=== PATIENT | male | born 1980 | race Caucasian/White ===

== ENCOUNTER → 2023-12-06 06:26 | Day surgery (SDC) | payer BC, SELFPAY | LOC: GI 06:26 | PROVIDERS: ATTENDING PHYSICIAN Internal Medicine Gastroenterology | DX: Z12.11 Encounter for screening for malignant neoplasm of colon (principal); Z80.0 Family history of malignant neoplasm of digestive organs; K64.8 Other hemorrhoids | CPT/HCPCS: G0105 ==

== ENCOUNTER 2025-02-06 18:07 | Emergency (ER) | payer BC, SELFPAY ==
[2025-02-06 18:18] VITALS: BP 119/73
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
[2025-02-06] MEDS: ADACEL 0.5 ML IM (19:28)
== END 2025-02-06 19:39 | disposition home or self-care (01) ==
LOC: EMR 18:07
PROVIDERS: EMERGENCY PHYSICIAN Emergency Medicine; FAMILY PHYSICIAN Family Medicine
DX: S60.452A Superficial foreign body of right middle finger, initial encounter (principal); W45.8XXA Other foreign body or object entering through skin, initial encounter; W26.8XXA Contact with other sharp object(s), not elsewhere classified, initial encounter; Z23 Encounter for immunization
CPT/HCPCS: 90471; 99282; 90715

== ENCOUNTER 2025-04-19 04:34 | Emergency (ER) | payer BC, SELFPAY ==
[2025-04-19 04:37] VITALS: BP 144/96
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
[2025-04-19 04:45] VITALS: BP 130/96
[2025-04-19 04:47] VITALS: BMI 24.2
[2025-04-19 05:00] VITALS: BP 123/79
[2025-04-19] MEDS: SILVADENE 1 APPLIC TOPICAL (05:01)
[2025-04-19] MEDS: TORADOL 30 MG IM (05:01)
--- NOTE | 2025-04-19 05:31 | ED.ADDNOTE ---
ED Addendum
ED Addendum
ED Addendum Note:
The patient also voiced concern for ongoing facial pain for the past week with some mucus into the chest. He has already tried conservative measures including pseudoephedrine and treatment for allergic symptoms. Will therefore try azithromycin
over the next few days
[2025-04-19] MEDS: ZITHROMAX 500 MG PO (05:35)
== END 2025-04-19 06:14 | disposition home or self-care (01) ==
LOC: EMR 04:34
PROVIDERS: EMERGENCY PHYSICIAN Emergency Medicine; FAMILY PHYSICIAN Family Medicine
DX: T20.00XA Burn of unspecified degree of head, face, and neck, unspecified site, initial encounter (principal); X13.1XXA Other contact with steam and other hot vapors, initial encounter
CPT/HCPCS: 99282; 96372